=== PATIENT | female | born 1950 | race Caucasian/White ===

== ENCOUNTER 2021-04-11 07:34 | Day surgery (SDC) | payer MEDICARE, SELFPAY ==
[2021-04-05 09:46] VITALS: BMI 43.9
--- NOTE | 2021-04-08 08:35 | MHC.SHP ---
Pre-Procedural Eval Section A Date of Service: 04/08/21 The patient is an INPATIENT: No Changes since office visit: No Cold of Flu in the past 2 weeks, No New Medical Problems, No Changes in Medication and No Patient answered all questions The History & Physical has been completed within 30 days and I have reviewed it.: Yes Section B Chief Complaint: cataract left eye Allergies: Allergies Allergy/AdvReac Type Severity Reaction Status Date / Time amoxicillin [From Augmentin] AdvReac Muscle Pain Verified 04/05/21 09:44 clavulanic acid AdvReac Muscle Pain Verified 04/05/21 09:44 [From Augmentin] Plan Diagnosis/Plan: Unchanged I have reviewed the history and physical and performed a pertinent physical examination on my patient. No changes have occurred unless specified.
--- NOTE | 2021-04-11 08:04 | HO.ANESPROP2 ---
HPI - Anesthesia Eval Consult details Narrative: left eye cataract FOR[facility], [facility] Past Medical History Medical History (Updated 04/05/21 @ 09:43 by Jaqueline Hooker RN) Atrial fibrillation COVID-19 vaccine series completed Diabetes mellitus Elevated cholesterol Endometrial cancer History of Graves' disease HTN (hypertension) On anticoagulant therapy On beta melonie at home Surgical History Surgical History (Updated 04/05/21 @ 09:43 by Jaqueline Hooker RN) Hx of colonoscopy Hx of hysterectomy History of Problems with Anesthesia: No Social History Social History Household Members Other:: son Are you a primary manager respiratory care to a significant other at home: No Do you presently have visiting nurse or other home services: No Patient Tobacco Use Status: Never used Tobacco Use of substances other than those prescribed or required for medical reasons: No Have you been hit, kicked, punched, or otherwise hurt by someone within the past year? If so, by whom?: No Are you DNR?: No Advance Directives: No Advance Directives Information Provided: No Advance Directives on File: No Recently lost weight without trying: No Eating poorly because of decreased appetite: No Nutrition Risks: No Nutritional Risk Patient : No Meds Allergies Allergy/AdvReac Type Severity Reaction Status Date / Time amoxicillin [From Augmentin] AdvReac Muscle Pain Verified 04/05/21 09:44 clavulanic acid AdvReac Muscle Pain Verified 04/05/21 09:44 [From Augmentin] Active Medications: Current Medications Cyclopentolate HCl (Cyclopentolate 1 % Ophth Jade 2 Ml Drpbtl) 1 drop EYE-LEFT Q5M DEBRA Stop: 04/11/21 08:11 Lactated Ringer's (Lr) 500 mls @ 50 mls/hr IVCONT .Q10H DEBRA Ketorolac Tromethamine (Ketorolac Tromethamine 0.5% Op 3 Ml Drops) 1 drop EYE-LEFT Q5M DEBRA Stop: 04/11/21 08:11 Phenylephrine HCl (Phenylephrine Hcl 2.5% Oph Jade 2 Ml Bottle) 1 drop EYE-LEFT Q5M DEBRA Stop: 04/11/21 08:11 Povidone Iodine (Povidone Iodine 5 % Ophth Soln 30 Ml Bottle) 1 appl EYE-LEFT PREOP PRN PRN Reason: Pre-Op Surgical Implant Prophy Tropicamide (Tropicamide 1 % Ophth Jade 3 Ml Btl) 1 drop EYE-LEFT Q5M DEBRA Stop: 04/11/21 08:11 Home Medications Medication Instructions Recorded Confirmed Last Taken Type amlodipine 5 mg tablet 1 tab PO DAILY 04/05/21 04/05/21 04/11/21 History furosemide 20 mg tablet 1 tab PO DAILY 04/05/21 04/05/21 Unknown History levothyroxine 100 mcg tablet 1 tab PO DAILY 04/05/21 04/05/21 04/11/21 History lisinopril 40 mg tablet 1 tab PO DAILY 04/05/21 04/05/21 Unknown History metoprolol succinate 200 mg 1 tab PO DAILY 04/05/21 04/05/21 Unknown History tablet,extended release 24 hr metoprolol succinate 50 mg 1 tab PO DAILY 04/05/21 04/05/21 04/11/21 History tablet,extended release 24 hr pravastatin 10 mg tablet 1 tab PO BEDTIME 04/05/21 04/05/21 Unknown History warfarin 1 mg tablet (Jantoven) tab PO 04/05/21 Unknown History warfarin 2 mg tablet (Jantoven) 1 tab PO BEDTIME 04/05/21 04/05/21 Unknown History Exam Exam Date and Time: April 11, 2021 0804 Height,Weight and Vital Signs: Height 5 ft 2 in Weight 108.862 kg Airway Mallampati Class: II TM Dist: >3cm Neck ROM: Full Loose/Missing/Broken Teeth: No Heart: [id number] Lungs: cta b/l Assessment and Plan Assessment Anesthesia Assessment: Anesthesia Plan Discussed and Chart Reviewed Final Anesthetic Review History of Problems with Anesthesia: No NPO: Yes ASA Class: III Final Preanesthetic Review: No Changes in Pt Med Stat, Meds/Allgs Chart Reviewed, Consent Obtained/Reviewed and Anes Risks/Benef Reviewed Patient Risk: Intermediate Procedure Risk: Low Assessment/Block/Sedation in SS: Assess/Block/Sedation-SS Anesthetic Plan Anesthetic Plan: MAC: and Agree w/ Assess. and Plan Disposition: Standard PACU
[2021-04-11 08:05] VITALS: BP 140/72; PULSE 76; RESP 16; TEMP 36.4; O2SAT 96
[2021-04-11] MEDS: Tetracaine HCl/PF 0.5% Oph Sol 4 ML DROPS 1 DROP EYE-LEFT (08:08)
[2021-04-11] MEDS: Tropicamide 1 % Ophth Sol 3 ML BTL 1 DROP EYE-LEFT ×3 (08:09→08:22)
[2021-04-11] MEDS: Lactated Ringers 500 ML 50 ML IVCONT (08:12)
[2021-04-11] MEDS: Phenylephrine HCL 2.5% Oph SoL 2 ML BOTTLE 1 DROP EYE-LEFT ×3 (08:16→08:24)
--- NOTE | 2021-04-11 09:20 | HO.PNOPHT ---
Ophthalmology Procedure Procedure Date of Service: 04/11/21 Ophthalmology Viscoelastic: Healon Duet Dual Pack Pro Ophthalmology Lenses: TECALPESH [id number] (24) Procedure Notes: PREOPERATIVE DIAGNOSIS: Decreased visual acuity left eye secondary to cataract POSTOPERATIVE DIAGNOSIS: Same PROCEDURE: Left cataract extraction with intraocular lens insertion SURGEON: Aidan Addison M.D. ANESTHESIA: Topical/MAC ESTIMATED BLOOD LOSS: None COMPLICATIONS: None After obtaining informed consent, the patient was brought to the operation room suite and placed in the supine position. After adequate sedation per anesthesia, topical drops of Tetracaine were given to the left eye. The eye was then prepped and draped in the usual sterile fashion. The operating room microscope was then positioned over the operative eye and a lid speculum placed. A paracentesis was created. Viscoelastic was then instilled into the anterior chamber. A three plane incision was then created temporally, utilizing a 2.85 mm keratome. Capsulotomy forceps were then utilized to create a circular tear capsulotomy. Hydrodissection and hydrodelineation were carried out until adequate mobilization of the nucleus occurred. Phacoemulsification was then utilized to remove the dense central nucleus followed by removal of the cortical material utilizing the automated aspiration irrigation unit. Viscoat elastic was instilled into the posterior capsular bag followed by placement of a posterior chamber intraocular lens without difficulty. The residual Viscoat elastic was then removed utilizing the automated IA machine. The wound was check and found to be watertight. The patient tolerated the procedure well and the lid speculum was removed. Intracameral injection of Vigamox 0.1 mL followed by a subtenon injection of Kenalog-40 0.2 mL were administered. The patient will be seen in the a.m.
[2021-04-11 09:55] VITALS: BP 129/82; PULSE 63; RESP 16; TEMP 36.1; O2SAT 95
== END 2021-04-11 09:58 | disposition home or self-care (01) ==
PROVIDERS: PCP Hospitalist; Visit Provider Ophthalmology
PROC: (CPT 66985; principal; 2021-04-11 09:10)
DX: H25.12 Age-related nuclear cataract, left eye (principal); H54.7 Unspecified visual loss; H35.033 Hypertensive retinopathy, bilateral; I10 Essential (primary) hypertension; E11.9 Type 2 diabetes mellitus without complications; Z79.899 Other long term (current) drug therapy
CPT/HCPCS: 66984; J2250; J3010; J3300; V2632

== ENCOUNTER 2021-04-25 06:38 | Day surgery (SDC) | payer MEDICARE, SELFPAY ==
[2021-04-05 09:50] VITALS: BMI 43.9
--- NOTE | 2021-04-19 14:50 | HO.ANESPROP2 ---
Documented by User: Becca Ku NP 04/19/21 14:50 HPI - Anesthesia Eval Consult details Narrative: 70yo F for Right Cataract Multifocal with IOL Insertion PCP Cleared Left eye done 04/11/21 with MAC: Fent 50, Midaz 1 Coumadin for afib PMFSH Past Medical History Medical History Atrial fibrillation COVID-19 vaccine series completed Diabetes mellitus Elevated cholesterol Endometrial cancer History of Graves' disease HTN (hypertension) On anticoagulant therapy On beta melonie at home Surgical History Surgical History (Updated 04/25/21 @ 06:53 by Edie John RN) History of left cataract extraction Hx of colonoscopy Hx of hysterectomy History of Problems with Anesthesia: No Social History Social History Household Members Other:: son Are you a primary family member caretaker to a significant other at home: No Do you presently have visiting nurse or other home services: No Patient Tobacco Use Status: Never used Tobacco Use of substances other than those prescribed or required for medical reasons: No Have you been hit, kicked, punched, or otherwise hurt by someone within the past year? If so, by whom?: No Are you DNR?: No Advance Directives: No Advance Directives Information Provided: No Advance Directives on File: No Recently lost weight without trying: No Eating poorly because of decreased appetite: No Nutrition Risks: No Nutritional Risk Patient : No Meds Allergies Allergy/AdvReac Type Severity Reaction Status Date / Time amoxicillin [From Augmentin] AdvReac Muscle Pain Verified 04/25/21 06:53 clavulanic acid AdvReac Muscle Pain Verified 04/25/21 06:53 [From Augmentin] Home Medications Medication Instructions Recorded Confirmed Last Taken Type amlodipine 5 mg tablet 1 tab PO DAILY 04/05/21 04/05/21 04/25/21 03:00 History furosemide 20 mg tablet 1 tab PO DAILY 04/05/21 04/05/21 Unknown History levothyroxine 100 mcg tablet 1 tab PO DAILY 04/05/21 04/05/21 04/25/21 03:00 History lisinopril 40 mg tablet 1 tab PO DAILY 04/05/21 04/05/21 Unknown History metoprolol succinate 200 mg 1 tab PO DAILY 04/05/21 04/05/21 Unknown History tablet,extended release 24 hr metoprolol succinate 50 mg 1 tab PO DAILY 04/05/21 04/05/21 04/25/21 03:00 History tablet,extended release 24 hr pravastatin 10 mg tablet 1 tab PO BEDTIME 04/05/21 04/05/21 Unknown History warfarin 1 mg tablet (Jantoven) tab PO 04/05/21 Unknown History warfarin 2 mg tablet (Jantoven) 1 tab PO BEDTIME 04/05/21 04/05/21 Unknown History Exam Exam Date and Time: April 19, 2021 1450 Height,Weight and Vital Signs: Height 5 ft 2 in Weight 108.862 kg Assessment and Plan Assessment Anesthesia Assessment: Chart Reviewed Final Anesthetic Review History of Problems with Anesthesia: No Documented by User: Yaima Bojorquez MD 04/25/21 08:00 [facility] Past Medical History Medical History Atrial fibrillation COVID-19 vaccine series completed Diabetes mellitus Elevated cholesterol Endometrial cancer History of Graves' disease HTN (hypertension) On anticoagulant therapy On beta melonie at home Family History Family history of problems with anesthesia: No Surgical History Surgical History (Updated 04/25/21 @ 06:53 by Edie John RN) History of left cataract extraction Hx of colonoscopy Hx of hysterectomy Social History Social History Household Members Other:: son Are you a primary family member caretaker to a significant other at home: No Do you presently have visiting nurse or other home services: No Patient Tobacco Use Status: Never used Tobacco Use of substances other than those prescribed or required for medical reasons: No Have you been hit, kicked, punched, or otherwise hurt by someone within the past year? If so, by whom?: No Are you DNR?: No Advance Directives: No Advance Directives Information Provided: No Advance Directives on File: No Recently lost weight without trying: No Eating poorly because of decreased appetite: No Nutrition Risks: No Nutritional Risk Patient : No Meds Allergies Allergy/AdvReac Type Severity Reaction Status Date / Time amoxicillin [From Augmentin] AdvReac Muscle Pain Verified 04/25/21 06:53 clavulanic acid AdvReac Muscle Pain Verified 04/25/21 06:53 [From Augmentin] Home Medications Medication Instructions Recorded Confirmed Last Taken Type amlodipine 5 mg tablet 1 tab PO DAILY 04/05/21 04/05/21 04/25/21 03:00 History furosemide 20 mg tablet 1 tab PO DAILY 04/05/21 04/05/21 Unknown History levothyroxine 100 mcg tablet 1 tab PO DAILY 04/05/21 04/05/21 04/25/21 03:00 History lisinopril 40 mg tablet 1 tab PO DAILY 04/05/21 04/05/21 Unknown History metoprolol succinate 200 mg 1 tab PO DAILY 04/05/21 04/05/21 Unknown History tablet,extended release 24 hr metoprolol succinate 50 mg 1 tab PO DAILY 04/05/21 04/05/21 04/25/21 03:00 History tablet,extended release 24 hr pravastatin 10 mg tablet 1 tab PO BEDTIME 04/05/21 04/05/21 Unknown History warfarin 1 mg tablet (Jantoven) tab PO 04/05/21 Unknown History warfarin 2 mg tablet (Jantoven) 1 tab PO BEDTIME 04/05/21 04/05/21 Unknown History Exam Height,Weight and Vital Signs: Height 5 ft 2 in Weight 108.862 kg Vital Signs Temp Pulse Resp BP Pulse Ox 04/25/21 07:00 97.1 F 60 18 148/72 H 95 Airway Mallampati Class: III TM Dist: >3cm Neck ROM: Full Loose/Missing/Broken Teeth: No Heart: Irregularly irregular Lungs: CTAB Assessment and Plan Assessment Anesthesia Assessment: Anesthesia Plan Discussed Final Anesthetic Review Family History of Problems with Anesthesia: No NPO: Yes ASA Class: III Final Preanesthetic Review: No Changes in Pt Med Stat, Meds/Allgs Chart Reviewed, Consent Obtained/Reviewed and Anes Risks/Benef Reviewed Patient Risk: Intermediate Procedure Risk: Low Assessment/Block/Sedation in SS: Assess/Block/Sedation-SS Anesthetic Plan Anesthetic Plan: MAC: Disposition: Standard PACU
--- NOTE | 2021-04-20 08:06 | MHC.SHP ---
Pre-Procedural Eval Section A Date of Service: 04/20/21 The patient is an INPATIENT: No Changes since office visit: No Cold of Flu in the past 2 weeks, No New Medical Problems, No Changes in Medication and No Patient answered all questions The History & Physical has been completed within 30 days and I have reviewed it.: Yes Section B Chief Complaint: cataract right eye Allergies: Allergies Allergy/AdvReac Type Severity Reaction Status Date / Time amoxicillin [From Augmentin] AdvReac Muscle Pain Verified 04/05/21 09:44 clavulanic acid AdvReac Muscle Pain Verified 04/05/21 09:44 [From Augmentin] Plan Diagnosis/Plan: Unchanged I have reviewed the history and physical and performed a pertinent physical examination on my patient. No changes have occurred unless specified.
[2021-04-25 07:00] VITALS: BP 148/72; PULSE 60; RESP 18; TEMP 36.2; O2SAT 95
[2021-04-25] MEDS: Tetracaine HCl/PF 0.5% Oph Sol 4 ML DROPS 1 DROP EYE-RIGHT (07:09)
[2021-04-25] MEDS: Tropicamide 1 % Ophth Sol 3 ML BTL 1 DROP EYE-RIGHT ×3 (07:12→07:23)
[2021-04-25] MEDS: Phenylephrine HCL 2.5% Oph SoL 2 ML BOTTLE 1 DROP EYE-RIGHT ×3 (07:14→07:26)
--- NOTE | 2021-04-25 09:31 | HO.PNOPHT ---
Ophthalmology Procedure Procedure Date of Service: 04/25/21 Ophthalmology Viscoelastic: Healon Duet Dual Pack Pro Ophthalmology Lenses: TECALPESH [id number] (20) Procedure Notes: PREOPERATIVE DIAGNOSIS: Decreased visual acuity right eye secondary to cataract POSTOPERATIVE DIAGNOSIS: Same PROCEDURE: Right cataract extraction with intraocular lens insertion SURGEON: Aidan Addison M.D. ANESTHESIA: Topical/MAC ESTIMATED BLOOD LOSS: None COMPLICATIONS: None After obtaining informed consent, the patient was brought to the operating room suite and placed in the supine position. After adequate sedation per anesthesia, topical drops of Tetracaine were given to the right eye. The eye was then prepped and draped in the usual sterile fashion. The operating room microscope was then positioned over the operative eye and a lid speculum placed. A paracentesis was created. Viscoelastic was then instilled into the anterior chamber. A three plane incision was then created temporally, utilizing a 2.85 mm keratome. Capsulotomy forceps were then utilized to create a circular tear capsulotomy. Hydrodissection and hydrodelineation were carried out until adequate mobilization of the nucleus occurred. Phacoemulsification was then utilized to remove the dense central nucleus followed by removal of the cortical material utilizing the automated aspiration irrigation unit. Viscoelastic was instilled into the posterior capsular bag followed by placement of a posterior chamber intraocular lens without difficulty. The residual Viscoelastic was then removed utilizing the automated IA machine. The wound was checked and found to be watertight. The patient tolerated the procedure well and the lid speculum was removed. Intracameral injection of Vigamox 0.1 mL followed by a subtenon injection of Kenalog-40 0.2 mL were administered. The patient will be seen in the a.m.
[2021-04-25 09:37] VITALS: BP 142/79; PULSE 57; RESP 16; TEMP 36.1; O2SAT 96
== END 2021-04-25 09:45 | disposition home or self-care (01) ==
PROVIDERS: PCP Hospitalist; Visit Provider Ophthalmology
PROC: (CPT 66985; principal; 2021-04-25 09:10)
DX: H25.11 Age-related nuclear cataract, right eye (principal); H35.033 Hypertensive retinopathy, bilateral; H54.7 Unspecified visual loss; I10 Essential (primary) hypertension; E03.9 Hypothyroidism, unspecified; E11.9 Type 2 diabetes mellitus without complications; I48.91 Unspecified atrial fibrillation; Z79.01 Long term (current) use of anticoagulants; Z79.899 Other long term (current) drug therapy
CPT/HCPCS: 66984; J2250; J3010; J3300; V2632

== ENCOUNTER 2023-02-12 13:23 | Outpatient (AMB) | payer MEDICARE, SELFPAY ==
[2023-02-12 13:56] VITALS: BP 132/80; PULSE 69; TEMP 36.6; O2SAT 99; BMI 44.8
--- NOTE | 2023-02-12 13:56 | AM.OFFWIN_ITS ---
Intake Vital Signs 02/12/23 13:56 Height 5 ft 2 in Weight 245 lb BMI 44.8 BP 132/80 Blood Pressure Location Rt brachial Position Sitting Pulse 69 Pulse Source Pulse Oximeter Temp 97.9 F Temp Source Temporal Artery Scan Pulse Oximetry (%) 99 Intake Visit Reasons: EST/abcess Intake Note: pt is here for c/o abcess in mouth Patient Tobacco Use Status: Never used Tobacco Allergies amoxicillin [From Augmentin] Adverse Reaction (Verified 02/12/23 14:27) Muscle Pain clavulanic acid [From Augmentin] Adverse Reaction (Verified 02/12/23 14:27) Muscle Pain Medication List - Last Reconciled 02/12/23 by Tommy Troncoso MD amlodipine 1 tab PO DAILY furosemide 1 tab PO DAILY levothyroxine 1 tab PO DAILY lisinopril 1 tab PO DAILY metoprolol succinate ER 1 tab PO DAILY metoprolol succinate ER 1 tab PO DAILY pravastatin 1 tab PO BEDTIME warfarin (Jantoven) 1 tab PO BEDTIME warfarin (Jantoven) changes per PT/ INR Do you need a note to return to daycare/school/sports/work: Yes HPI EST/abcess HPI Details 72-year-old female presents to [facility] for a sick visit. Patient has an infection in the mouth and over the cheek.. Symptoms of pain for the past week. Difficulty swallowing. [facility] Medical History (Updated 02/12/23 @ 14:28 by Tommy Troncoso MD) On beta melonie at home COVID-19 vaccine series completed Diabetes mellitus Endometrial cancer History of Graves' disease Atrial fibrillation On anticoagulant therapy Elevated cholesterol HTN (hypertension) Surgical History (Updated 04/25/21 @ 06:53 by Edie John RN) History of left cataract extraction Hx of colonoscopy Hx of hysterectomy Social History Household Members Other:: son Are you a primary child care giver to a significant other at home: No Do you presently have visiting nurse or other home services: No Patient Tobacco Use Status: Never used Tobacco Physical Exam Vital Signs: Last Vital Signs Temp 97.9 F 02/12/23 13:56 Pulse 69 02/12/23 13:56 BP 132/80 02/12/23 13:56 Pulse Ox 99 02/12/23 13:56 BMI result Body Mass Index 44.8 HEENT Other: Oral cavity: Upper jaw fluctuance swelling on the outer side of the 3rd molar. Tender to touch. Assessment & Plan Assessment & Plan (1) Cellulitis: Code(s): L03.90 - Cellulitis, unspecified Qualifiers: Site of cellulitis: face Qualified Code(s): L03.211 - Cellulitis of face Plan: Antibiotics called in. Anti-inflammatory called in. If symptoms do not improve to follow-up here or at the dentist. Coding Level of Care Code Est Pt Level 3 (54526) Diagnoses Cellulitis of face L03.211 Site of cellulitis: face
== END 2023-02-12 14:55 | disposition home or self-care (01) ==
PROVIDERS: PCP Hospitalist; Visit Provider Internal Medicine
DX: L03.211 Cellulitis of face (principal)
CPT/HCPCS: 99213